=== PATIENT | male | born 1995 | race Asian ===

== ENCOUNTER 2025-05-13 18:02 | Emergency (ER) | payer OTHER ==
[~2025-05-13] VITALS: Ht 175.3 cm; Wt 61.0 kg
[2025-05-13 18:29] VITALS: O2SAT 98
[2025-05-13] MEDS: ACETAMINOPHEN 500MG TABLET PO ONE (19:50)
[2025-05-13] MEDS: KETOROLAC 15MG/ML VIAL IM ONE (19:51)
[2025-05-13] MEDS ORDERED: KETO10TA2 MT (20:49)
[2025-05-13] MEDS ORDERED: ACET-2708 MT (20:49)
[2025-05-13] MEDS ORDERED: AMOX1TAB16 MT (20:49)
[2025-05-13 21:15] VITALS: BP 113/77; PULSE 67; RESP 14; TEMP 36.7; O2SAT 98
== END 2025-05-13 21:17 | disposition home or self-care (01) ==
LOC: ER 18:02
DX: K08.89 Other specified disorders of teeth and supporting structures (principal); Z79.899 Other long term (current) drug therapy
CPT/HCPCS: 99283; 96372; J1885